=== PATIENT | female | born 1990 | race Caucasian/White ===

== ENCOUNTER 2018-07-09 21:06 | Emergency (ER) | payer OTHER ==
--- NOTE | 2018-07-09 21:27 | PDOC ---
Rapid Medical Evaluation Time Seen by Provider: 07/09/18 21:25 Medical Evaluation: 07/09/18 21:26 I have performed a brief in-person evaluation of this patient. The patient presents with a chief complaint of:R foot injury tonight Pertinent physical exam findings:defer to FT provider I have ordered the following:xr The patient will proceed to the ED for further evaluation. Discharge Disposition - Diagnosis Foot injury Qualifiers: Encounter type: initial encounter Laterality: right Qualified Code(s): S99.921A - Unspecified injury of right foot, initial encounter - Referrals Referrals: Jessika Ramirez MD [Primary Care Provider] - - Patient Instructions - Post Discharge Activity
[2018-07-09 21:28] VITALS: BP 125/72; PULSE 85; TEMP 98.9; BMI 30.1
--- NOTE | 2018-07-09 22:07 | PDOC ---
History of Present Illness - General Chief Complaint: Injury Stated Complaint: SWELLING TO ANKLE, PAIN Time Seen by Provider: 07/09/18 21:25 - History of Present Illness Initial Comments: 07/09/18 22:06 27-year-old female without comorbidities presents for evaluation of right ankle pain after twisting type of injury which occurred today. She points to the lateral aspect of the right ankle as the area for discomfort. Past History - Past Medical History Allergies/Adverse Reactions: Allergies Allergy/AdvReac Type Severity Reaction Status Date / Time No Known Allergies Allergy Verified 07/09/18 21:26 COPD: No - Suicide/Smoking/Psychosocial Hx Smoking History: Never smoked Review of Systems - Review of Systems Musculoskeletal: Yes: See HPI, Joint Pain All Other Systems: Reviewed and Negative *Physical Exam - Vital Signs Last Vital Signs Temp Pulse Resp BP Pulse Ox 98.9 F 85 18 125/72 100 07/09/18 21:26 07/09/18 21:26 07/09/18 21:26 07/09/18 21:26 07/09/18 21:26 - Physical Exam Comments: 07/09/18 22:06 Right ankle skin color and temperature are normal. Is mild lateral swelling. There is no tenderness about the knee proximal fibula or along its distal course. There is no tenderness about the medial malleolus or navicular. There is mild tenderness about the distal fibula and ATFL as well as the base of the fifth metatarsal. She is unable to tolerate stability testing. There are no gross sensorimotor deficit she is neurovascular intact. Medical Decision Making - Medical Decision Making 07/09/18 22:48 X-ray show no evidence of fracture trauma destructive process this is an ankle sprain weight-bear as tolerated with use of an ankle stirrup Aircast splint and crutches follow-up with orthopedics in one to 2 days for further evaluation and treatment options Tylenol and Motrin as directed for pain *DC/Admit/Observation/Transfer Diagnosis at time of Disposition: Ankle sprain Foot injury Qualifiers: Encounter type: initial encounter Laterality: right Qualified Code(s): S99.921A - Unspecified injury of right foot, initial encounter - Discharge Dispostion Disposition: HOME Condition at time of disposition: Stable Decision to Admit order: No - Referrals Referrals: Jessika Ramirez MD [Primary Care Provider] - Pradeep Keys MD [Staff Physician] - - Patient Instructions Printed Discharge Instructions: Ankle Sprain, DI for Ankle Sprain Additional Instructions: He may weight-bear as tolerated with use of crutches and a neck has. Tylenol and Motrin as directed for pain. Return to the emergency room should symptoms worsen or go unresolved. Please follow-up with orthopedic surgery in 2-3 days for further evaluation and treatment options. - Post Discharge Activity
== END 2018-07-09 22:45 | disposition home or self-care (01) ==
LOC: JERFT 21:06
PROC: 2W3QX1Z Immobilization of Right Lower Leg using Splint (ICD-10-PCS; principal; 2018-07-09)
DX: S93.491A Sprain of other ligament of right ankle, initial encounter (principal); X50.1XXA Overexertion from prolonged static or awkward postures, initial encounter; Y93.89 Activity, other specified; Y92.89 Other specified places as the place of occurrence of the external cause; Y99.8 Other external cause status
CPT/HCPCS: 29515; 73610-TC-RT-FY; 73630-TC-RT-FY; 84703; 99281-25

== ENCOUNTER 2018-09-04 15:53 | Emergency (ER) | payer OTHER ==
--- NOTE | 2018-09-04 16:04 | PDOC ---
Rapid Medical Evaluation Chief Complaint: Pain Medical Evaluation: Allergies Allergy/AdvReac Type Severity Reaction Status Date / Time No Known Allergies Allergy Verified 07/09/18 21:26 09/04/18 15:58 I have performed a brief in-person evaluation of this patient. The patient presents with a chief complaint of:abd pain s/p excessive workup Pertinent physical exam findings: tight tender abd muscles / ( here for work note) I have ordered the following: nothing, The patient will proceed to the ED for further evaluation. 09/04/18 16:02 Discharge Disposition - Referrals Referrals: Jessika Ramirez MD [Primary Care Provider] - - Patient Instructions - Post Discharge Activity
[2018-09-04 16:05] VITALS: BP 131/70; PULSE 91; TEMP 98; BMI 29.2
--- NOTE | 2018-09-04 16:45 | PDOC ---
History of Present Illness - General Chief Complaint: Pain Stated Complaint: ABD PAIN Time Seen by Provider: 09/04/18 16:23 - History of Present Illness Initial Comments: 09/04/18 16:40 18-year-old female presents for evaluation of abdominal pain 2 days. 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 She also complains of a hard mass around the right side of the mons pubis 09/04/18 16:43 Past History - Past Medical History Allergies/Adverse Reactions: Allergies Allergy/AdvReac Type Severity Reaction Status Date / Time No Known Allergies Allergy Verified 09/04/18 15:58 COPD: No - Immunization History Immunization Up to Date: Yes - Suicide/Smoking/Psychosocial Hx Smoking History: Never smoked Hx Alcohol Use: Yes Drug/Substance Use Hx: No Review of Systems - Review of Systems ABD/GI: Yes: See HPI : Yes: See HPI *Physical Exam - Vital Signs Last Vital Signs Temp Pulse Resp BP Pulse Ox 98.0 F 91 H 18 131/70 100 09/04/18 15:58 09/04/18 15:58 09/04/18 15:58 09/04/18 15:58 09/04/18 15:58 - Physical Exam Comments: 09/04/18 16:43 Abdomen is soft diffusely tender to light palpation without any focal findings. Normal skin color and temperature. There is a subcentimeter freely mobile firm tender nodule about the right side of the mons pubis. This examination was done with female nurse in the room. Moderate Sedation - Procedure Monitoring Vital Signs: Procedure Monitoring Vital Signs Temperature 98.0 F 09/04/18 15:58 Pulse Rate 91 H 09/04/18 15:58 Respiratory Rate 18 09/04/18 15:58 Blood Pressure 131/70 09/04/18 15:58 O2 Sat by Pulse Oximetry (%) 100 09/04/18 15:58 ED Treatment Course - ADDITIONAL ORDERS Additional order review: Laboratory Results 09/04/18 16:05 Urine HCG, Qual Negative Medical Decision Making - Medical Decision Making 09/04/18 16:44 This is delayed onset muscle soreness after excessive working out and most likely a lipoma about the mons pubis *DC/Admit/Observation/Transfer Diagnosis at time of Disposition: Muscle soreness, Lipoma of unspecified site - Discharge Dispostion Disposition: HOME Condition at time of disposition: Stable Decision to Admit order: No - Referrals Referrals: Jessika Ramirez MD [Primary Care Provider] - Fredo Hernandez MD [Staff Physician] - - Patient Instructions Printed Discharge Instructions: Magnet Therapies Appear Ineffective for Muscle Soreness and Back Pain, But , Lipoma Additional Instructions: Please follow-up with Gen. surgery for further evaluation and treatment of the suspect lipoma. Follow-up with her primary care physician for clearance for work full duty when her abdomen feels better Tylenol and Motrin as directed for pain. - Post Discharge Activity Forms/Work/School Notes: Back to Work
== END 2018-09-04 16:48 | disposition home or self-care (01) ==
LOC: JERFT 15:53
DX: M79.18 Myalgia, other site (principal); R10.84 Generalized abdominal pain; D17.72 Benign lipomatous neoplasm of other genitourinary organ
CPT/HCPCS: 84703; 99281-25

== ENCOUNTER 2019-01-06 00:41 | Emergency (ER) | payer BC, OTHER ==
[2019-01-06 01:00] VITALS: BP 110/70; PULSE 67; TEMP 99
[2019-01-06 01:13] VITALS: BMI 28.3
--- NOTE | 2019-01-06 01:24 | PDOC ---
History of Present Illness - General Chief Complaint: Pain Stated Complaint: ABD PAIN S/P SURGICAL PROCEDURE Time Seen by Provider: 01/06/19 01:06 History Source: Patient Exam Limitations: No Limitations - History of Present Illness Travel History: No Initial Comments: 01/06/19 01:19 HISTORY OF PRESENT ILLNESS: 28-year-old woman past medical history of and lipoma removal 10/06 resents emergency Department with left lower quadrant pain since October of this year. Patient reports the pain is a sharp burning sensation which is deep within her body. Patient reports she is a 30 under the care of a general surgeon requested an evaluation including a CAT scan which performed earlier this week. Patient is to follow-up next week with a general surgeon for results of the CAT scan and continued evaluation of this pain. Patient has been taking Motrin at home which is controlling her pain reports she does not need analgesia while here. She denies fevers chills, vaginal burning, dysuria, hematuria, rectal bleeding, diarrhea, constipation. No recent travel or sick contacts. PAST MEDICAL HISTORY: Denies past medical history SURGICAL HISTORY: see HPI ALLERGIES: No known drug allergies REVIEW OF SYSTEMS General/Constitutional: Denies fever or chills. Denies weakness, weight change. HEENT: Denies change in vision. Denies ear pain or discharge. Denies sore throat. Cardiovascular: Denies chest pain or shortness of breath. Respiratory: Denies cough, wheezing, or hemoptysis. Gastrointestinal: see HPI Genitourinary: Denies dysuria, frequency, or change in urination. Musculoskeletal: Denies joint or muscle swelling or pain. Denies neck or back pain. Skin and breasts: Denies rash or easy bruising. Neurologic: Denies headache, vertigo, loss of consciousness, or loss of sensation. Psychiatric: Denies depression or anxiety. Endocrine: Denies increased thirst. Denies abnormal weight change. Hematologic/Lymphatic: Denies anemia, easy bleeding, or history of blood clots. Allergic/Immunologic: Denies hives or skin allergy. Denies latex allergy. PHYSICAL EXAM General Appearance: Well-appearing, appropriately dressed. No apparent distress , no intoxication. Respiratory/Chest: Lungs CTAB. No shortness of breath, chest tenderness, respiratory distress, accessory muscle use. No crackles, rales, rhonchi, stridor , wheezing, dullness Cardiovascular: RRR. S1, S2. No JVD, murmur, bradycardia, tachycardia. Vascular Pulses: Dorsalis-Pedis (R): 2+, Dorsalis-Pedis (L): 2+ Gastrointestinal/Abdominal: Normal bowel sounds. Abdomen soft, non-distended. Firm nonmobile I'll mass present to the left lower quadrant immediately superior to scar. No tenderness with palpation of the mass. Lymphatic: No adenopathy, tenderness. Past History - Past Medical History Allergies/Adverse Reactions: Allergies Allergy/AdvReac Type Severity Reaction Status Date / Time No Known Allergies Allergy Verified 01/06/19 01:00 Home Medications: Ambulatory Orders NK [No Known Home Medication] 09/04/18 COPD: No - Immunization History Immunization Up to Date: Yes - Suicide/Smoking/Psychosocial Hx Smoking History: Never smoked Hx Alcohol Use: Yes Drug/Substance Use Hx: No *Physical Exam - Vital Signs Last Vital Signs Temp Pulse Resp BP Pulse Ox 99.0 F 67 17 110/70 100 01/06/19 00:56 01/06/19 00:56 01/06/19 00:56 01/06/19 00:56 01/06/19 00:56 Medical Decision Making - Medical Decision Making 01/06/19 01:23 A/P: 28-year-old woman with palpable mass on her abdomen Family to discussion with the patient, she reveals she does not want a complete evaluation as she is artery had a CAT scan which is pending results and currently has pain management which is effective. Patient is requesting a note for work for the next couple of days until she can follow up with general surgeon and her CAT scan results. Urinalysis, urine culture, UPT Discharge home 01/06/19 01:24 01/06/19 01:25 01/06/19 02:37 Urinalysis is negative. Urine testing is negative. I will discharge the patient home to follow-up with her general surgeon to follow up on CAT scan results. Strict return precautions of been provided to the patient was verbalizes understanding of discharge instructions. *DC/Admit/Observation/Transfer Diagnosis at time of Disposition: Abdominal mass, left lower quadrant - Discharge Dispostion Disposition: HOME Condition at time of disposition: Stable Decision to Admit order: No - Referrals Referrals: Jessika Ramirez MD [Primary Care Provider] - - Patient Instructions Additional Instructions: Follow-up with a general surgeon next week for results of a CAT scan. testing is negative today. Your urine shows no signs of infection. Return to emergency department for any new or worsening symptoms. Thank you very much for choosing us to provide your emergent health care needs. - Post Discharge Activity Forms/Work/School Notes: Back to Work
[2019-01-06 01:51] LABS: HCG,QUALITATIVE URINE Negative; PH,URINE 5.5 (5.0-8.0); URINE APPEARANCE CLEAR; URINE BILIRUBIN NEGATIVE (NEGATIVE); URINE COLOR YELLOW; URINE GLUCOSE (UA) NEGATIVE (NEGATIVE); URINE KETONE NEGATIVE (NEGATIVE); URINE LEUK ESTERASE TRACE (NEGATIVE); URINE NITRITE NEGATIVE (NEGATIVE); URINE PROTEIN NEGATIVE (NEGATIVE); URINE UROBILINOGEN 0.2 mg/dL (0.2-1.0)
[2019-01-06 02:34] LABS: EPI CELLS MODERATE /HPF (0-5/HPF); URINE WBC NONE SEEN /hpf (0-5)
[2019-01-06 02:35] LABS: URINE BACTERIA NONE SEEN /hpf (NEGATIVE); URINE CASTS NONE SEEN /lpf (0-8)
== END 2019-01-06 03:04 | disposition home or self-care (01) ==
LOC: JER 00:41
DX: R19.04 Left lower quadrant abdominal swelling, mass and lump (principal)
CPT/HCPCS: 81003; 84703; 87086; 99283-25

== ENCOUNTER 2020-05-03 17:28 | Emergency (ER) | payer SELFPAY ==
[2020-05-03 17:40] VITALS: BP 109/71; PULSE 75; TEMP 97; BMI 28.5
--- NOTE | 2020-05-03 18:20 | PDOC ---
History of Present Illness - General Chief Complaint: Pain Stated Complaint: /ABDOMINAL PAIN Time Seen by Provider: 05/03/20 18:09 History Source: Patient - History of Present Illness Timing/Duration: reports: other (today) Past History - Medical History Allergies/Adverse Reactions: Allergies Allergy/AdvReac Type Severity Reaction Status Date / Time No Known Allergies Allergy Verified 05/03/20 17:40 Home Medications: Ambulatory Orders Nitrofurantoin Monohyd/M-Cryst [Macrobid -] 100 mg PO BID #14 capsule 05/03/20 COPD: No - Reproductive History Is Patient Now?: No - Immunization History Immunization Up to Date: Yes - Psycho-Social/Smoking History Smoking History: Never smoked - Substance Abuse Hx (Audit-C & DAST Scrn) How often the patient has a drink containing alcohol: Never Score: In Men: 4 or > Positive; In Women: 3 or > Positive: 0 Screen Result (Pos requires Nsg. Audit-10AR): Negative Review of Systems - Review of Systems Constitutional: No: Fever ABD/GI: Yes: Abdominal cramping. No: Nausea, Vomiting : No: Burning, Dysuria, Flank Pain *Physical Exam - Vital Signs Last Vital Signs Temp Pulse Resp BP Pulse Ox 97 F L 75 18 109/71 99 05/03/20 17:35 05/03/20 17:35 05/03/20 17:35 05/03/20 17:35 05/03/20 17:35 - Physical Exam General Appearance: Yes: Appropriately Dressed. No: Apparent Distress HEENT: positive: Normal Voice Neck: positive: Supple Respiratory/Chest: negative: Respiratory Distress Gastrointestinal/Abdominal: positive: Normal Bowel Sounds, Soft. negative: Tender, Distended, Guarding, Rebound Musculoskeletal: negative: CVA Tenderness Integumentary: positive: Dry, Warm Neurologic: positive: Fully Oriented, Alert, Normal Mood/Affect ED Treatment Course - LABORATORY CBC & Chemistry Diagram: 05/03/20 20:15 05/03/20 20:15 - RADIOLOGY Radiology Studies Ordered: Category Date Time Status TRANSVAGINAL US PREG [US] Stat Ultrasound 05/03/20 18:13 Ordered Medical Decision Making - Medical Decision Making 05/03/20 18:17 29 yo F, anemia, , ~ 4-5 weeks by dates, here w/ abd cramps and minimal vaginal bleed mixed w/ vag discharge today per pt. No dysuria, n/v/f/c. States she is not planning on bringing fetus to term and went to clinic yesterday but was told unable to do procedure as no e/o on US and was told she may be too early. No beta was done per pt see exam 1st trimester bleed/bleed Stable R/o ectopic (no e/o preg on US yesterday in clinic), no prior beta -T&S -UA -Beta -US 05/03/20 20:01 Beta > 4K w/ "complex focus at L adnexal region" on US. pt now reports that her bad cramps is on her L side. Remains stable and well chace here. Will place UV and get labs. Case d/w Dr Rausch who would like to wait for labs prior to methotrexate administration. of note, +UTI. Will tx. ucx sent. RH + 05/03/20 20:56 Discharge - Discharge Information Problems reviewed: Yes Clinical Impression/Diagnosis: Ectopic Qualifiers: Location of ectopic : unspecified location Intrauterine status: unspecified Qualified Code(s): O00.90 - Unspecified ectopic without intrauterine UTI (urinary tract infection) Qualifiers: Urinary tract infection type: site unspecified Hematuria presence: without hematuria Qualified Code(s): N39.0 - Urinary tract infection, site not specified Condition: Stable Disposition: HOME - Additional Discharge Information Prescriptions: Nitrofurantoin Monohyd/M-Cryst [Macrobid -] 100 mg PO BID #14 capsule - Follow up/Referral Referrals: Moo Rausch MD [Staff Physician] - - Patient Discharge Instructions Additional Instructions: You were seen in the emergency department for the evaluation of your ectopic . You need to follow up with Dr. Rausch within 4 days after discharge. Please call his office tomorrow, 05/04/2020, for an appointment. Please make sure to get a repeat beta hcg within the 4 days. Please return to the emergency department if you have worsening pain in the abdomen or new concerning symptoms such vomiting uncontrollably, nausea, lightheadedness, back pain, faint feeling, and dizziness. Thank you. Please take the antibiotics as prescribed. - Post Discharge Activity
[2020-05-03 18:57] LABS: HCG,QUALITATIVE URINE Positive
[2020-05-03 19:01] LABS: EPI CELLS 23 /uL (0-25.1); HYALINE CASTS 4 /uL (0-3.1); PH,URINE 7.5 (5.0-8.0); URINE APPEARANCE CLEAR; URINE BILIRUBIN NEGATIVE (NEGATIVE); URINE COLOR YELLOW; URINE GLUCOSE (UA) NEGATIVE (NEGATIVE); URINE KETONE NEGATIVE (NEGATIVE); URINE LEUK ESTERASE 2+ (NEGATIVE); URINE NITRITE POSITIVE (NEGATIVE); URINE PROTEIN NEGATIVE (NEGATIVE); URINE RBC 18 /uL (0-23.9); URINE WBC 433 /uL (0-25.8)
[2020-05-03 21:02] LABS: BASO % 1.2 % (0-2.0); EOS % 0.5 % (0-4.5); HEMOGLOBIN 12.1 GM/dL (10.7-15.3); LYMPH % 17.7 % (8-40); MCHC 32.6 g/dl (32.0-36.0); MEAN CELL VOLUME 79.9 fl (80-96); MEAN PLT VOLUME 10.8 fl (7.5-11.1); MONO % 5.9 % (3.8-10.2); NEUT % 74.7 % (42.8-82.8); PLATELET COUNT 255 K/MM3 (134-434); RBC 4.64 M/mm3 (3.60-5.2); RDW 15.2 % (11.6-15.6); WHITE BLOOD COUNT 10.8 K/mm3 (4.0-10.0)
[2020-05-03 21:09] LABS: INR 0.96 (0.83-1.09); PROTHROMBIN TIME (PATIENT) 11.3 SEC (9.7-13.0)
--- NOTE | 2020-05-03 21:23 | PDOC ---
*Physical Exam - Vital Signs Last Vital Signs Temp Pulse Resp BP Pulse Ox 97 F L 75 18 109/71 99 05/03/20 17:35 05/03/20 17:35 05/03/20 17:35 05/03/20 17:35 05/03/20 17:35 - Physical Exam 05/03/20 23:32 Received patient at sign out. ED Treatment Course - LABORATORY CBC & Chemistry Diagram: 05/03/20 20:15 05/03/20 20:15 - ADDITIONAL ORDERS Additional order review: Laboratory Results 05/03/20 05/03/20 05/03/20 20:15 18:30 18:30 PT with INR 11.30 INR 0.96 Beta HCG, Quant 4172.3 Urine Color Urine Appearance Urine pH Ur Specific Lipscomb Urine Protein Urine Glucose (UA) Urine Ketones Urine Blood Urine Nitrite Urine Bilirubin Urine Urobilinogen Ur Leukocyte Esterase Urine WBC (Auto) Urine RBC (Auto) Urine Casts (Auto) U Epithel Cells (Auto) Urine Bacteria (Auto) Urine HCG, Qual Blood Type O POSITIVE Antibody Screen Negative 05/03/20 18:30 PT with INR INR Beta HCG, Quant Urine Color Yellow Urine Appearance Clear Urine pH 7.5 D Ur Specific Lipscomb 1.019 Urine Protein Negative Urine Glucose (UA) Negative Urine Ketones Negative Urine Blood Trace Urine Nitrite Positive H Urine Bilirubin Negative Urine Urobilinogen 1.0 Ur Leukocyte Esterase 2+ H Urine WBC (Auto) 433 Urine RBC (Auto) 18 Urine Casts (Auto) 4 U Epithel Cells (Auto) 23 Urine Bacteria (Auto) >10,000 Urine HCG, Qual Positive Blood Type Antibody Screen 05/03/20 20:15 RBC 4.64 MCV 79.9 L MCHC 32.6 RDW 15.2 MPV 10.8 Neutrophils % 74.7 Lymphocytes % 17.7 Monocytes % 5.9 Eosinophils % 0.5 Basophils % 1.2 Medical Decision Making - Medical Decision Making Spoke to Dr. Escobar who stated that the patient will require methotrexate one time dose based on height and weight once the CMP results Laboratory Tests 05/03/20 05/03/20 05/03/20 18:30 18:30 18:30 WBC RBC Hgb Hct MCV MCH MCHC RDW Plt Count MPV Absolute Neuts (auto) Neutrophils % Lymphocytes % Monocytes % Eosinophils % Basophils % Nucleated RBC % PT with INR INR Sodium Potassium Chloride Carbon Dioxide Anion Gap BUN Creatinine Est GFR (CKD-EPI)AfAm Est GFR (CKD-EPI)NonAf Random Glucose Calcium Total Bilirubin AST ALT Alkaline Phosphatase Total Protein Albumin Beta HCG, Quant 4172.3 Urine Color Yellow Urine Appearance Clear Urine pH 7.5 D Ur Specific Lipscomb 1.019 Urine Protein Negative Urine Glucose (UA) Negative Urine Ketones Negative Urine Blood Trace Urine Nitrite Positive H Urine Bilirubin Negative Urine Urobilinogen 1.0 Ur Leukocyte Esterase 2+ H Urine WBC (Auto) 433 Urine RBC (Auto) 18 Urine Casts (Auto) 4 U Epithel Cells (Auto) 23 Urine Bacteria (Auto) >10,000 Urine HCG, Qual Positive Blood Type O POSITIVE Antibody Screen Negative 05/03/20 05/03/20 05/03/20 20:15 20:15 20:15 WBC 10.8 H RBC 4.64 Hgb 12.1 Hct 37.0 MCV 79.9 L MCH 26.0 MCHC 32.6 RDW 15.2 Plt Count 255 MPV 10.8 Absolute Neuts (auto) 8.1 H Neutrophils % 74.7 Lymphocytes % 17.7 Monocytes % 5.9 Eosinophils % 0.5 Basophils % 1.2 Nucleated RBC % 0 PT with INR 11.30 INR 0.96 Sodium 138 Potassium 4.3 Chloride 106 Carbon Dioxide 26 Anion Gap 6 L BUN 10.0 Creatinine 0.8 Est GFR (CKD-EPI)AfAm 115.47 Est GFR (CKD-EPI)NonAf 99.63 Random Glucose 83 Calcium 9.0 Total Bilirubin 0.2 AST 17 ALT 18 Alkaline Phosphatase 76 Total Protein 7.2 Albumin 3.5 Beta HCG, Quant Urine Color Urine Appearance Urine pH Ur Specific Lipscomb Urine Protein Urine Glucose (UA) Urine Ketones Urine Blood Urine Nitrite Urine Bilirubin Urine Urobilinogen Ur Leukocyte Esterase Urine WBC (Auto) Urine RBC (Auto) Urine Casts (Auto) U Epithel Cells (Auto) Urine Bacteria (Auto) Urine HCG, Qual Blood Type Antibody Screen 05/03/20 20:15 WBC RBC Hgb Hct MCV MCH MCHC RDW Plt Count MPV Absolute Neuts (auto) Neutrophils % Lymphocytes % Monocytes % Eosinophils % Basophils % Nucleated RBC % PT with INR INR Sodium Potassium Chloride Carbon Dioxide Anion Gap BUN Creatinine Est GFR (CKD-EPI)AfAm Est GFR (CKD-EPI)NonAf Random Glucose Calcium Total Bilirubin AST ALT Alkaline Phosphatase Total Protein Albumin Beta HCG, Quant Urine Color Urine Appearance Urine pH Ur Specific Lipscomb Urine Protein Urine Glucose (UA) Urine Ketones Urine Blood Urine Nitrite Urine Bilirubin Urine Urobilinogen Ur Leukocyte Esterase Urine WBC (Auto) Urine RBC (Auto) Urine Casts (Auto) U Epithel Cells (Auto) Urine Bacteria (Auto) Urine HCG, Qual Blood Type O POSITIVE Antibody Screen Negative UA positive for UTI with bhcg 4172. in consultation with pharmacy, the patient was administered 110 mg of methotrexate. the patient was advised at length return precautions and strict concerning signs to be on the look out for The patient was recommended strongly to follow up with Dr. Escobar tomorrow (within [address]). [address] Escobar is aware of the patient acquiring methotrexate. Pstient was discharged without pain and able to ambulate on her own volition. Discharge - Discharge Information Problems reviewed: Yes Clinical Impression/Diagnosis: Ectopic Qualifiers: Location of ectopic : unspecified location Intrauterine st atus: unspecified Qualified Code(s): O00.90 - Unspecified ectopic without intrauterine UTI (urinary tract infection) Qualifiers: Urinary tract infection type: site unspecified Hematuria presence: without hematuria Qualified Code(s): N39.0 - Urinary tract infection, site not specified Condition: Stable Disposition: HOME - Admission No - Additional Discharge Information Prescriptions: Nitrofurantoin Monohyd/M-Cryst [Macrobid -] 100 mg PO BID #14 capsule - Follow up/Referral Referrals: Moo Rausch MD [Staff Physician] - - Patient Discharge Instructions Additional Instructions: You were seen in the emergency department for the evaluation of your ectopic . You need to follow up with Dr. Rausch within 4 days after discharge. Please call his office tomorrow, 05/04/2020, for an appointment. Please make sure to get a repeat beta hcg within the 4 days. Please return to the emergency department if you have worsening pain in the abdomen or new concerning symptoms such vomiting uncontrollably, nausea, lightheadedness, back pain, faint feeling, and dizziness. Thank you. Please take the antibiotics as prescribed. - Post Discharge Activity
[2020-05-03 21:33] LABS: ALBUMIN 3.5 g/dl (3.4-5.0); BILIRUBIN,TOTAL 0.2 mg/dL (0.2-1); CREATININE 0.8 mg/dL (0.55-1.3); POTASSIUM 4.3 mmol/L (3.5-5.1); TOT PROT 7.2 g/dl (6.4-8.2)
[2020-05-03] MEDS ORDERED: METHOTREXATE SODIUM/PF 25 MG/ML VIAL IM ONE (22:34)
[2020-05-03] MEDS ORDERED: NITROFURANTOIN MACROCRYSTAL 50 MG CAPSULE (FP) PO SCH (22:45)
[2020-05-03] MEDS ORDERED: NITROFURANTOIN MACROCRYSTAL 50 MG CAPSULE (FP) ONE (22:58)
--- NOTE | 2020-05-04 00:13 | PDOC ---
Attending Attestation - Resident Resident Name: HardikSteve - ED Attending Attestation I have performed the following: I have examined & evaluated the patient, The case was reviewed & discussed with the resident, I agree w/resident's findings & plan, Exceptions are as noted - HPI HPI: 29 yo F currently 4-5 WGA by LMP presents with abd cramping and vaginal bleeding, unwanted . - Physicial Exam PE: GENERAL: Awake, alert, and fully oriented, in no acute distress ABDOMEN: Soft, nontender, normoactive bowel sounds. No guarding, no rebound. No masses - Medical Decision Making Pt with L adnexal complex focus, with pain in same location. Case d/w Dr. Rausch by resident- methotrexate given in ED. F/u in office. Discharge - Discharge Information Problems reviewed: Yes Clinical Impression/Diagnosis: Ectopic Qualifiers: Location of ectopic : unspecified location Intrauterine status: unspecified Qualified Code(s): O00.90 - Unspecified ectopic without intrauterine UTI (urinary tract infection) Qualifiers: Urinary tract infection type: site unspecified Hematuria presence: without hematuria Qualified Code(s): N39.0 - Urinary tract infection, site not specified Condition: Stable Disposition: HOME - Additional Discharge Information Prescriptions: Nitrofurantoin Monohyd/M-Cryst [Macrobid -] 100 mg PO BID #14 capsule - Follow up/Referral Referrals: Moo Rausch MD [Staff Physician] - - Patient Discharge Instructions Additional Instructions: You were seen in the emergency department for the evaluation of your ectopic . You need to follow up with Dr. Rausch within 4 days after discharge. Please call his office tomorrow, 05/04/2020, for an appointment. Please make sure to get a repeat beta hcg within the 4 days. Please return to the emergency department if you have worsening pain in the abdomen or new concerning symptoms such vomiting uncontrollably, nausea, lightheadedness, back pain, faint feeling, and dizziness. Thank you. Please take the antibiotics as prescribed. - Post Discharge Activity
== END 2020-05-04 00:43 | disposition home or self-care (01) ==
LOC: JER 17:28
PROC: 3E033GC Introduction of Other Therapeutic Substance into Peripheral Vein, Percutaneous Approach (ICD-10-PCS; principal; 2020-05-03)
DX: O00.90 Unspecified ectopic pregnancy without intrauterine pregnancy (principal); N39.0 Urinary tract infection, site not specified
CPT/HCPCS: 36415; 76817-TC; 80053; 81003; 84702; 84703; 85025; 85610; 86850; 86900; 86901; 87086; 87186; 99284-25; J9260

== ENCOUNTER 2021-01-02 12:43 | Emergency (ER) | payer BC, OTHER ==
[2021-01-02 12:52] VITALS: TEMP 98.2; BMI 30.7
[2021-01-02 13:57] LABS: EPI CELLS 16 /uL (0-25.1); HYALINE CASTS 1 /uL (0-3.1); URINE APPEARANCE CLEAR; URINE BACTERIA 699 /uL (0-1359); URINE BILIRUBIN NEGATIVE (NEGATIVE); URINE COLOR YELLOW; URINE GLUCOSE (UA) NEGATIVE (NEGATIVE); URINE KETONE NEGATIVE (NEGATIVE); URINE LEUK ESTERASE TRACE (NEGATIVE); URINE NITRITE NEGATIVE (NEGATIVE); URINE PROTEIN NEGATIVE (NEGATIVE); URINE RBC 5 /uL (0-23.9); URINE UROBILINOGEN 0.2 mg/dL (0.2-1.0); URINE WBC 13 /uL (0-25.8)
[2021-01-02 14:26] LABS: CALCIUM 9.2 mg/dL (8.5-10.1)
[2021-01-02 14:27] LABS: ALBUMIN 3.3 g/dl (3.4-5.0); BLOOD UREA NITROGEN 8.6 mg/dL (7-18)
[2021-01-02 14:30] LABS: CREATININE 0.8 mg/dL (0.55-1.3)
[2021-01-02 14:32] LABS: BILIRUBIN,TOTAL 0.3 mg/dL (0.2-1); TOT PROT 6.8 g/dl (6.4-8.2)
[2021-01-02 15:02] LABS: EOS % 1.6 % (0-4.5); HEMATOCRIT 35.2 % (32.4-45.2); HEMOGLOBIN 11.6 GM/dL (10.7-15.3); MCH 26.2 pg (25.7-33.7); MCHC 32.9 g/dl (32.0-36.0); MEAN CELL VOLUME 79.7 fl (80-96); MEAN PLT VOLUME 9.8 fl (7.5-11.1); MONO % 7.7 % (3.8-10.2); NEUT % 61.7 % (42.8-82.8); PLATELET COUNT 193 K/MM3 (134-434); RBC 4.42 M/mm3 (3.60-5.2); RDW 13.9 % (11.6-15.6); WHITE BLOOD COUNT 10.3 K/mm3 (4.0-10.0)
[2021-01-02 15:23] VITALS: BP 126/87; PULSE 98
== END 2021-01-02 15:23 | disposition home or self-care (01) ==
LOC: JER 12:43
DX: O20.0 Threatened abortion (principal)
CPT/HCPCS: 36415; 76817-TC; 80053; 81003; 84702; 85025; 85379; 86850; 86900; 86901; 87086; 87491; 87591; 99284-25

== ENCOUNTER 2021-01-04 09:59 | Emergency (ER) | payer BC, OTHER ==
[2021-01-04 10:13] VITALS: BP 108/72; TEMP 98.3; BMI 30.7
[2021-01-04 13:44] VITALS: PULSE 77
== END 2021-01-04 13:20 | disposition home or self-care (01) ==
LOC: JER 09:59
DX: R10.84 Generalized abdominal pain (principal)
CPT/HCPCS: 36415; 76817-TC; 84702; 99284-25

== ENCOUNTER 2021-01-06 17:21 | Emergency (ER) | payer BC, OTHER ==
[2021-01-06 17:31] VITALS: BP 122/82; PULSE 106; TEMP 96.6; BMI 30.7
== END 2021-01-06 18:59 | disposition home or self-care (01) ==
LOC: JER 17:21
DX: O00.01 Abdominal pregnancy with intrauterine pregnancy (principal)
CPT/HCPCS: 36415; 76817-TC; 84702; 99284-25

== ENCOUNTER 2022-01-21 11:03 | Emergency (ER) | payer BC, OTHER ==
[2022-01-21 11:12] VITALS: BP 111/80; PULSE 99; TEMP 99.1; BMI 29.2
[2022-01-21 12:32] LABS: THROAT:GRP A STREP DETECTED (NOTDETECTED)
== END 2022-01-21 12:42 | disposition home or self-care (01) ==
LOC: JER 11:03 → JERFT 11:03 → JER 12:42
DX: J03.90 Acute tonsillitis, unspecified (principal)
CPT/HCPCS: 0241U-QW; 87651; 87807; 99283-25; C9803-CS; U0003; U0005

== ENCOUNTER 2022-02-03 20:28 | Emergency (ER) | payer BC, OTHER ==
[2022-02-03 20:40] VITALS: BP 126/87; TEMP 97.7; BMI 29.2
[2022-02-03] MEDS ORDERED: DEXAMETHASONE LIQUID 0.5 MG/5 ML PO ONE (21:44)
[2022-02-03] MEDS ORDERED: IBUPROFEN 600 MG TABLET (FP) PO ONE ×2 (21:44→21:47)
[2022-02-03] MEDS ORDERED: DEXAMETHASONE SOD PHOSPHATE 10 MG/1 ML VIAL ONE (21:47)
[2022-02-03 21:52] VITALS: PULSE 76
== END 2022-02-03 21:59 | disposition home or self-care (01) ==
LOC: JERFT 20:28
DX: J02.9 Acute pharyngitis, unspecified (principal)
CPT/HCPCS: 87651; 99283-25; C9803-CS; U0003; U0005

== ENCOUNTER 2022-03-19 18:32 | Emergency (ER) | payer BC, OTHER ==
[2022-03-19 18:49] VITALS: BP 104/70; PULSE 87; TEMP 98.2; BMI 29.2
[2022-03-19 20:58] LABS: THROAT:GRP A STREP DETECTED (NOTDETECTED)
== END 2022-03-19 20:40 | disposition home or self-care (01) ==
LOC: JER 18:32 → JERFT 18:32
DX: J02.9 Acute pharyngitis, unspecified (principal)
CPT/HCPCS: 0241U-QW; 36415; 87110; 87491; 87591; 87651; 87661; 99283-25